=== PATIENT | male | born 1980 | race African-American/Black ===

== ENCOUNTER 2018-10-07 21:57 | Emergency (ER) | payer SELFPAY, OTHER ==
[~2018-10-07] VITALS: Ht 167.6 cm; Wt 57.6 kg
[2018-10-07] MEDS ORDERED: EXCEDRIN MIGRA1 EAC1 PO (22:03)
[2018-10-07 22:04] VITALS: BP 133/87
--- NOTE | 2018-10-07 22:20 | Emergency Room Report ---
History of Present Illness General Chief Complaint: Medical Clearance Source: Patient Present Illness HPI This is a 38-year-old male brought in by police for medical clearance. He said he has history of staph infection on his right elbow and right foot area. Onset for last 2-3 weeks. Occasionally draining. No fever chills but no nausea no vomiting. Denies any other complaint. No pain. Allergies: Coded Allergies: No Known Allergies (Unverified , 10/07/18) Patient History Past Medical History: see triage record, old chart reviewed Past Surgical History: other Pertinent Family History: none Social History: Reports: drug use Immunizations: other Reviewed Nursing Documentation: PMH: Agreed; PSxH: Agreed Nursing Documentation-PMH Past Medical History: No History, Except For Review of Systems Eye: Denies: eye pain, blurred vision ENT: Denies: ear pain, nose congestion, throat swelling Respiratory: Denies: cough, shortness of breath Cardiovascular: Denies: chest pain, palpitations Gastrointestinal: Denies: abdominal pain, diarrhea, nausea, vomiting Musculoskeletal: Denies: back pain, joint pain Skin: Denies: rash Neurological: Denies: headache, numbness Endocrine: Denies: increased thirst, increased urine Hematologic/Lymphatic: Denies: easy bruising All Other Systems: negative except mentioned in HPI Physical Exam Vital Signs Date Time Temp Pulse Resp B/P (MAP) Pulse Ox O2 Delivery O2 Flow Rate FiO2 10/07/18 21:59 78 18 133/87 97 Room Air 10/07/18 22:04 98.1 10/07/18 22:04 99 vitals normal Sp02 EP Interpretation: reviewed, normal General Appearance: well appearing, no apparent distress, alert Head: normocephalic, atraumatic Eyes: bilateral eye PERRL, bilateral eye EOMI ENT: hearing grossly normal, normal pharynx Neck: full range of motion, supple, no meningismus Respiratory: chest non-tender, lungs clear, normal breath sounds Cardiovascular #1: regular rate, rhythm, no murmur Gastrointestinal: normal bowel sounds, non tender, no mass, no organomegaly, no bruit, non-distended Musculoskeletal: back normal, gait/station normal, normal range of motion, other - On his right upper extremity near the elbow and forearm, there are small 1-2 centimeter ulcerated lesion. No drainage. Psychiatric: mood/affect normal Skin: warm/dry Medical Decision Making Diagnostic Impression: Primary Impression: Cellulitis Qualified Codes: L03.90 - Cellulitis, unspecified Additional Impression: Examination, medicolegal reason ER Course Patient presents with cellulitis and possibly old abscess that drained. There is mild erythema. We'll go ahead and treat as cellulitis with possible MRSA. He otherwise medically clear for police discharge. Last Vital Signs Date Time Temp Pulse Resp B/P (MAP) Pulse Ox O2 Delivery O2 Flow Rate FiO2 10/07/18 22:04 78 18 Room Air 99 10/07/18 22:04 98.1 133/87 97 Status: improved Disposition: D/C TO LAW ENFORCEMENT IN [facility] Condition: Stable Scripts Trimethoprim/Sulfamethoxazole 160/800* (BACTRIM DS TABLET*) 1 Each Tablet 1 TAB ORAL Q12H, #14 TAB 0 Refills Prov: Yony rAaujo MD 10/07/18 Additional Instructions: Follow-up with your doctor in a week. Return if worse. Yony Araujo MD Oct 07, 2018 22:20
[2018-10-07] MEDS ORDERED: BACTRIM DS TAB1 EAC1 ORAL (22:21)
[2018-10-07 22:24] VITALS: BP 136/89
[2018-10-07] MEDS ORDERED: Bacitracin Oint UD TOPIC ONE (22:30)
== END 2018-10-07 22:33 ==
LOC: EMR 22:26
DX: L03.113 Cellulitis of right upper limb (principal)
CPT/HCPCS: 99283